=== PATIENT | female | born 1990 | race Two or more races ===

== ENCOUNTER 2016-11-29 17:20 | Emergency (ER) | payer OTHER ==
[2016-11-29 17:26] VITALS: BP 115/77; PULSE 69; TEMP 98.1; BMI 17.8
--- NOTE | 2016-11-29 19:34 | PDOC ---
History of Present Illness - General Chief Complaint: Headache Stated Complaint: HEADACHE Time Seen by Provider: 11/29/16 19:20 - History of Present Illness Initial Comments: 11/29/16 19:34 CHIEF COMPLAINT: headache x 5 days HISTORY OF PRESENT ILLNESS: 26 yo F with no significant PMH presents to ED with headache x 5 days. Patient describes the headache as localized to the right side of her head, and is accompanied by dizziness, nausea and sensitivity to light. She states that she feels better when she is in the dark. She denies fever, chills, vomiting, diarrhea, or any URI symptoms. She denies any change in vision, difficulty walking, "thunderclap" headache, or trauma. No recent travel or sick contacts. PAST MEDICAL HISTORY: Denies past medical history FAMILY HISTORY: Denies SOCIAL HISTORY: Denies tobacco, alcohol, illicit drug use. SURGICAL HISTORY: Denies ALLERGIES: No known drug allergies REVIEW OF SYSTEMS General/Constitutional: Denies fever or chills. Denies weakness, weight change. HEENT: Denies change in vision. Denies ear pain or discharge. Denies sore throat. Cardiovascular: Denies chest pain or shortness of breath. Respiratory: Denies cough, wheezing, or hemoptysis. Gastrointestinal: Denies nausea, vomiting, diarrhea or constipation. Denies rectal bleeding. Genitourinary: Denies dysuria, frequency, or change in urination. Musculoskeletal: Denies joint or muscle swelling or pain. Denies neck or back pain. Skin and breasts: Denies rash or easy bruising. Neurologic: Right sided headache x 5 days. PHYSICAL EXAM General Appearance: Well-appearing, appropriately dressed. No apparent distress , no intoxication. HEENT: EOMI, PERRLA, normal ENT inspection, normal voice, TMs normal, pharynx normal. No conjunctival pallor. No photophobia, scleral icterus. Neck: Supple. Trachea midline. No tenderness, rigidity, carotid bruit, stridor , lymphadenopathy, or thyromegaly. Respiratory/Chest: Lungs CTAB. No shortness of breath, chest tenderness, respiratory distress, accessory muscle use. No crackles, rales, rhonchi, stridor , wheezing, dullness Cardiovascular: RRR. S1, S2. No JVD, murmur, bradycardia, tachycardia. Vascular Pulses: Dorsalis-Pedis (R): 2+, Dorsalis-Pedis (L): 2+ Gastrointestinal/Abdominal: Normal bowel sounds. Abdomen soft, non-distended. No tenderness or rebound tenderness. No organomegaly, pulsatile mass, guarding , hernia, hepatomegaly, splenomegaly. Lymphatic: No adenopathy, tenderness. Musculoskeletal/Extremities: Normal inspection. FROM of all extremities, normal capillary refill. Pelvis Stable. No CVA tenderness. No tenderness to extremities, pedal edema, swelling, erythema or deformity. Integumentary: Appropriate color, dry, warm. 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 Fully oriented, alert. Appropriate mood/affect. Motor strength 5/5. No appreciable EOM palsy, facial droop or sensory deficit. A&Ox3, follow commands, respond appropriately CN2-12: conjugate gaze, pupil round, equal and reactive to light. Visual field full to confrontation. EOMI without nystagmus, pursuit is smooth without saccade. Facial sensation and muscle activation intact bilaterally. Hearing intact bilaterally. Palate elevate symmetrically. Shoulder shrug and neck turn full strength. Tongue protrude midline. Motor: UE and LE strength 5/5 throughout bilaterally. Muscle tone and bulk normal. L shoulder abd 5/5 elbow F/E 5/5 wrist F/E 5/5 finger F/E 5/5 R shoulder abd 5/5 elbow F/E 5/5 wrist F/E 5/5 finger F/E 5/5 L hip F/E 5/5 knee F/E 5/5 ankle F/E 5/5 R hip F/E 5/5 knee F/E 5/5 ankle F/E 5/5 Sensory: pin prick & temp : BUE & BLE intact and equal bilaterally Vibration & propioception: intact bilaterally at 1st MCP and MTP joints. no sensory level noted on trunk Reflex: biceps brachioradialis triceps patellar achilles L 2+ 2+ 2+ 2+ 2+ R 2+ 2+ 2+ 2+ 2+ Plantar reflex downwards bilaterally. Cerebellar: Rapid-alternating movement with regular rhythm without bradykinesia. Vaditn-pq-ihyk and bwma-ip-xujj intact bilaterally without dysmetria or overshoot. Gait narrow based. No shuffling. Full hip flexion and knee flexion. Negative Romberg No involuntary movement noted. No pronator drift. No clonus. 11/29/16 19:41 Past History - Past Medical History Allergies/Adverse Reactions: Allergies Allergy/AdvReac Type Severity Reaction Status Date / Time No Known Allergies Allergy Verified 11/29/16 17:23 Home Medications: Ambulatory Orders Aspirin/Acetaminophen/Caffeine [Excedrin Migraine Caplet] 2 tab PO Q6H PRN #16 tablet 11/29/16 Kidney Stones: Yes Suicide Attempt (Hx): No Thyroid Disease: Yes (HYPER) - Surgical History Abdominal Surgery: Yes (KIDNEY STONES) - Immunization History Immunization Up to Date: Yes - Psycho/Social/Smoking Cessation Hx Anxiety: No Suicidal Ideation: No Smoking Status: No Smoking History: Never smoked Have you smoked in the past 12 months: No Number of Cigarettes Smoked Daily: 0 Information on smoking cessation initiated: No Hx Alcohol Use: No Drug/Substance Use Hx: No Substance Use Type: None *Physical Exam - Vital Signs Last Vital Signs Temp Pulse Resp BP Pulse Ox 98.1 F 69 18 115/77 100 11/29/16 17:24 11/29/16 17:24 11/29/16 17:24 11/29/16 17:24 11/29/16 17:24 Medical Decision Making - Medical Decision Making 26 yo F with no significant PMH presents to ED with headache x 5 days. Clinical presentation consistent with migraine exacerbation. -IVF -Toradol 30 mg IV -Reglan 10 mg IV -Benadryl 25 mg IV 11/29/16 21:36 Patient reassessed, states she is feeling "way better." Patient is ready to go home. Advised patient to follow up with PCP and of signs and symptoms for return to ER. Patient verbalized understanding and agrees to plan. *DC/Admit/Observation/Transfer Diagnosis at time of Disposition: Migraine Qualifiers: Migraine type: unspecified Status migrainosus presence: without status migrainosus Intractability: not intractable Qualified Code(s): G43.909 - Migraine, unspecified, not intractable, without status migrainosus - Discharge Dispostion Disposition: HOME Condition at time of disposition: Stable Admit: No - Prescriptions Prescriptions: Aspirin/Acetaminophen/Caffeine [Excedrin Migraine Caplet] 2 tab PO Q6H PRN #16 tablet PRN Reason: Headache - Referrals Referrals: Rose Gray MD [Staff Physician] - - Patient Instructions Printed Discharge Instructions: DI for Migraine Additional Instructions: Please follow up with your primary care doctor next week for further evaluation of your migraines. If you experience any sudden "thunderclap" headache, change in vision, difficulty walking, shortness of breath, chest pain, or persistent headache despite taking medication, nausea, vomiting, diarrhea, fever, please return to the ER immediately.
[2016-11-29] MEDS ORDERED: KETOROLAC TROMETHAMINE 30 MG/1 ML VIAL IVPUSH ONE (19:40)
[2016-11-29] MEDS ORDERED: SODIUM CHLORIDE 0.9% 1000 ML INFUS.BAG IV ONE (19:40)
[2016-11-29] MEDS ORDERED: METOCLOPRAMIDE HCL INJECTION 10 MG/2 ML VIAL IVPUSH ONE (19:40)
[2016-11-29] MEDS ORDERED: METOCLOPRAMIDE HCL INJECTION 10 MG/2 ML VIAL ONE (20:13)
[2016-11-29] MEDS ORDERED: KETOROLAC TROMETHAMINE 30 MG/1 ML VIAL ONE (20:36)
== END 2016-11-29 22:12 | disposition home or self-care (01) ==
LOC: JER 17:20
PROC: 3E0333Z Introduction of Anti-inflammatory into Peripheral Vein, Percutaneous Approach (ICD-10-PCS; principal; 2016-11-29)
PROC: 3E033GC Introduction of Other Therapeutic Substance into Peripheral Vein, Percutaneous Approach (ICD-10-PCS; 2016-11-29)
DX: G43.909 Migraine, unspecified, not intractable, without status migrainosus (principal)
CPT/HCPCS: 84703; 96374; 96375; 99282-25

== ENCOUNTER 2016-12-02 17:36 | Emergency (ER) | payer OTHER ==
[2016-12-02 17:41] VITALS: BP 119/70; PULSE 71; TEMP 97.9; BMI 17.8
--- NOTE | 2016-12-02 19:52 | PDOC ---
History of Present Illness - General Chief Complaint: Headache Stated Complaint: HEADACHE Time Seen by Provider: 12/02/16 19:34 - History of Present Illness Initial Comments: 12/02/16 19:50 CHIEF COMPLAINT: headache HISTORY OF PRESENT ILLNESS: 26 yo F with hx of kidney stones, ovarian cysts, returns to ED with recurring headache.. She was seen in this ER three days ago and the headache was resolved after IV Benadryl, Toraol, Reglan, and a liter of fluids. Patient states she was going to see her primary care doctor tomorrow but the headache returned on Satuday in the same place and has been persistently 10/10, she states could not handle the pain. She also complains of nausea and one episode of watery stool today. She denies any change in vision, slurred speech, or difficulty walking. No recent travel or sick contacts. PAST MEDICAL HISTORY: as per HPI FAMILY HISTORY: father - KIKO @ age 49 SOCIAL HISTORY: Lives at home with family. Denies tobacco, alcohol, illicit drug use. SURGICAL HISTORY: 2010 ALLERGIES: No known drug allergies REVIEW OF SYSTEMS General/Constitutional: Denies fever or chills. Denies weakness, weight change. HEENT: Denies change in vision. Denies ear pain or discharge. Denies sore throat. Cardiovascular: Denies chest pain or shortness of breath. Respiratory: Denies cough, wheezing, or hemoptysis. Gastrointestinal: Denies nausea, vomiting, diarrhea or constipation. Denies rectal bleeding. Genitourinary: Denies dysuria, frequency, or change in urination. Musculoskeletal: Denies joint or muscle swelling or pain. Denies neck or back pain. Skin and breasts: Denies rash or easy bruising. Neurologic: Denies headache, vertigo, loss of consciousness, or loss of sensation. PHYSICAL EXAM General Appearance: Well-appearing, appropriately dressed. No apparent distress , no intoxication. HEENT: EOMI, PERRLA, normal ENT inspection, normal voice, TMs normal, pharynx normal. No conjunctival pallor. No photophobia, scleral icterus. Neck: Supple. Trachea midline. No tenderness, rigidity, carotid bruit, stridor , lymphadenopathy, or thyromegaly. Respiratory/Chest: Lungs CTAB. No shortness of breath, chest tenderness, respiratory distress, accessory muscle use. No crackles, rales, rhonchi, stridor , wheezing, dullness Cardiovascular: RRR. S1, S2. No JVD, murmur, bradycardia, tachycardia. Vascular Pulses: Dorsalis-Pedis (R): 2+, Dorsalis-Pedis (L): 2+ Gastrointestinal/Abdominal: Normal bowel sounds. Abdomen soft, non-distended. No tenderness or rebound tenderness. No organomegaly, pulsatile mass, guarding , hernia, hepatomegaly, splenomegaly. Lymphatic: No adenopathy, tenderness. Musculoskeletal/Extremities: Normal inspection. FROM of all extremities, normal capillary refill. Pelvis Stable. No CVA tenderness. No tenderness to extremities, pedal edema, swelling, erythema or deformity. Integumentary: Appropriate color, dry, warm. 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 Fully oriented, alert. Appropriate mood/affect. Motor strength 5/5. No appreciable EOM palsy, facial droop or sensory deficit. A&Ox3, follow commands, respond appropriately CN2-12: conjugate gaze, pupil round, equal and reactive to light. Visual field full to confrontation. EOMI without nystagmus, pursuit is smooth without saccade. Facial sensation and muscle activation intact bilaterally. Hearing intact bilaterally. Palate elevate symmetrically. Shoulder shrug and neck turn full strength. Tongue protrude midline. Motor: UE and LE strength 5/5 throughout bilaterally. Muscle tone and bulk normal. Sensory: pin prick & temp : BUE & BLE intact and equal bilaterally Vibration & propioception: intact bilaterally at 1st MCP and MTP joints. no sensory level noted on trunk Cerebellar: Rapid-alternating movement with regular rhythm without bradykinesia. Opjpyl-lb-ewkt and dxdd-dw-isev intact bilaterally without dysmetria or overshoot. Gait narrow based. No shuffling. Full hip flexion and knee flexion. Negative Romberg No involuntary movement noted. No pronator drift. No clonus. Past History - Past Medical History Allergies/Adverse Reactions: Allergies Allergy/AdvReac Type Severity Reaction Status Date / Time No Known Allergies Allergy Verified 12/02/16 17:39 Home Medications: Ambulatory Orders NK [No Known Home Medication] 12/02/16 Kidney Stones: Yes Suicide Attempt (Hx): No Thyroid Disease: Yes (HYPER) - Surgical History Abdominal Surgery: Yes (KIDNEY STONES) - Immunization History Immunization Up to Date: Yes - Psycho/Social/Smoking Cessation Hx Anxiety: No Suicidal Ideation: No Smoking Status: No Smoking History: Never smoked Have you smoked in the past 12 months: No Number of Cigarettes Smoked Daily: 0 Information on smoking cessation initiated: No Hx Alcohol Use: No Drug/Substance Use Hx: No Substance Use Type: None *Physical Exam - Vital Signs Last Vital Signs Temp Pulse Resp BP Pulse Ox 97.9 F 71 18 119/70 100 12/02/16 17:39 12/02/16 17:39 12/02/16 17:39 12/02/16 17:39 12/02/16 17:39 ED Treatment Course - LABORATORY CBC & Chemistry Diagram: 12/02/16 20:40 12/02/16 20:40 Medical Decision Making - Medical Decision Making 12/02/16 21:34 26 yo F with hx of ovarian cysts and kidney stones presents to ED with recurrent ROGERS. Likely recurring migraine, but with family history of stroke and leukemia will perform head CT and labs to rule out intracranial pathology and malignancy. -CBC, CMP -Head CT -IVF, Reglan, Toradol, Benadryl Head CT negative. Advised patient to follow up with PCP and neurologist for further evaluation of new onset recurrent migraines. Patient verbalized understanding and agrees to plan. 12/02/16 22:25 *DC/Admit/Observation/Transfer Diagnosis at time of Disposition: Migraine Qualifiers: Migraine type: unspecified Status migrainosus presence: without status migrainosus Intractability: not intractable Qualified Code(s): G43.909 - Migraine, unspecified, not intractable, without status migrainosus - Discharge Dispostion Disposition: HOME Condition at time of disposition: Stable Admit: No - Referrals Referrals: Dagmar Toribio [Primary Care Provider] - [facility] [Provider Group] - Patient Instructions Printed Discharge Instructions: DI for Migraine Additional Instructions: Please follow up with your primary care doctor and neurologist (referral provided) for further evaluation of your migraines. As discussed, please return to the ER if you develop a thunderclap headache, change in vision, difficulty walking, slurred speech, nausea, vomiting, chest pain, or any new or worsening symptoms.
[2016-12-02] MEDS ORDERED: SODIUM CHLORIDE 0.9% 1000 ML INFUS.BAG IV ONE (20:28)
[2016-12-02] MEDS ORDERED: METOCLOPRAMIDE HCL INJECTION 10 MG/2 ML VIAL IVPUSH ONE (20:28)
[2016-12-02] MEDS ORDERED: KETOROLAC TROMETHAMINE 30 MG/1 ML VIAL IVPUSH PRN (20:28)
[2016-12-02] MEDS ORDERED: METOCLOPRAMIDE HCL INJECTION 10 MG/2 ML VIAL ONE (20:33)
[2016-12-02 20:53] LABS: BASOPHIL 0.3 % (0-2.0); EOSINOPHIL 0.4 % (0-4.5); MCH 29.5 pg (25.7-33.7); MCHC 32.6 g/dl (32.0-36.0); MEAN CELL VOLUME 90.4 fl (80-96); NEUTROPHILS 65.4 % (42.8-82.8); PLATELET COUNT 238 K/MM3 (134-434); RDW 12.6 % (11.6-15.6); WHITE BLOOD COUNT 7.3 K/mm3 (4.0-10.0)
[2016-12-02 21:27] LABS: ALBUMIN 3.7 g/dl (3.4-5.0); ANION GAP 8 (8-16); CO2 26 mmol/L (21-32); CREATININE 0.8 mg/dL (0.55-1.02); GLUCOSE,RANDOM 97 mg/dL (74-106); SGOT/AST 15 U/L (15-37); SGPT/ALT 10 U/L (12-78)
[2016-12-02 21:29] LABS: ALK PHOS 50 U/L (45-117); BILIRUBIN,TOTAL 0.4 mg/dL (0.2-1.0); TOT PROT 7.4 g/dl (6.4-8.2)
== END 2016-12-02 22:41 | disposition home or self-care (01) ==
LOC: JER 17:36
PROC: 3E033GC Introduction of Other Therapeutic Substance into Peripheral Vein, Percutaneous Approach (ICD-10-PCS; principal; 2016-12-02)
DX: G43.909 Migraine, unspecified, not intractable, without status migrainosus (principal)
CPT/HCPCS: 36415; 70450-TC; 80053; 84703; 85025; 96374; 96375; 99282-25

== ENCOUNTER 2017-06-13 14:32 | Emergency (ER) | payer OTHER ==
[2017-06-13 14:44] VITALS: TEMP 98.1; BMI 18.0
[2017-06-13 17:22] LABS: BASOPHIL 0.6 % (0-2.0); EOSINOPHIL 0.3 % (0-4.5); MCH 29.8 pg (25.7-33.7); MCHC 33.2 g/dl (32.0-36.0); MEAN CELL VOLUME 89.7 fl (80-96); MEAN PLT VOLUME 8.1 fl (7.5-11.1); PLATELET COUNT 213 K/MM3 (134-434); RDW 12.4 % (11.6-15.6); WHITE BLOOD COUNT 7.3 K/mm3 (4.0-10.0)
[2017-06-13 17:24] LABS: URINE APPEARANCE CLEAR; URINE BILIRUBIN NEGATIVE (NEGATIVE); URINE BLOOD 2+ (NEGATIVE); URINE COLOR LTYELLOW; URINE GLUCOSE (UA) NEGATIVE (NEGATIVE); URINE KETONE NEGATIVE (NEGATIVE); URINE LEUK ESTERASE NEGATIVE (NEGATIVE); URINE NITRITE NEGATIVE (NEGATIVE); URINE PROTEIN NEGATIVE (NEGATIVE); URINE UROBILINOGEN NEGATIVE mg/dL (0.2-1.0)
[2017-06-13 17:30] LABS: URINE BACTERIA RARE /hpf (NONE SEEN); URINE MUCUS RARE; URINE RBC 31 /hpf (0-3); URINE WBC 2 /hpf (3-5)
--- NOTE | 2017-06-13 17:57 | PDOC ---
History of Present Illness - General Chief Complaint: Vaginal Bleeding Stated Complaint: Vaginal Bleeding Time Seen by Provider: 06/13/17 15:32 History Source: Patient Exam Limitations: No Limitations - History of Present Illness Travel History: No Initial Comments: 06/13/17 17:53 26-year-old female presents to the emergency room for evaluation of abnormal vaginal bleeding without abdominal pain since yesterday. Patient states her menses was approximately 2 weeks ago and states has not had irregular menses, dysuria, fever, chills, weakness, dyspnea on exertion, or vaginal discharge prior to leaving. Patient states started Penicillin VK for dental abscess a few days ago and thought that the vaginal bleeding was related to the antibiotics. Timing/Duration: reports: constant Aggravating Factors: improves with: None Alleviating Factors: improves with: None Past History - Travel Traveled outside of the country in the last 30 days: No Close contact w/someone who was outside of country & ill: No - Past Medical History Allergies/Adverse Reactions: Allergies Allergy/AdvReac Type Severity Reaction Status Date / Time No Known Allergies Allergy Verified 06/13/17 14:40 Home Medications: Ambulatory Orders NK [No Known Home Medication] 12/02/16 Kidney Stones: Yes (X1) Suicide Attempt (Hx): No Thyroid Disease: Yes (HYPER) - Surgical History Abdominal Surgery: Yes (KIDNEY STONES) - Immunization History Immunization Up to Date: Yes - Psycho/Social/Smoking Cessation Hx Anxiety: No Suicidal Ideation: No Smoking Status: No Smoking History: Never smoked Have you smoked in the past 12 months: No Number of Cigarettes Smoked Daily: 0 Hx Alcohol Use: No Drug/Substance Use Hx: No Substance Use Type: None Patient Lives Alone: No Review of Systems - Review of Systems Able to Perform ROS?: Yes Constitutional: No: Symptoms Reported Respiratory: No: Symptoms reported Cardiac (ROS): No: Symptoms Reported ABD/GI: No: Symptoms Reported : Yes: Discharge Musculoskeletal: No: Back Pain Integumentary: No: Pallor Neurological: No: Headache, Weakness, Dizziness *Physical Exam - Vital Signs Last Vital Signs Temp Pulse Resp BP Pulse Ox 98.1 F 67 19 115/62 99 06/13/17 14:40 06/13/17 14:40 06/13/17 14:40 06/13/17 14:40 06/13/17 14:40 - Physical Exam General Appearance: Yes: Nourished, Appropriately Dressed. No: Apparent Distress HEENT: negative: Pale Conjunctivae Respiratory/Chest: positive: Lungs Clear, Normal Breath Sounds. negative: Respiratory Distress, Accessory Muscle Use Cardiovascular: positive: Regular Rhythm, Regular Rate. negative: Murmur Female Pelvic Exam: positive: cervical os closed, vaginal bleeding (dark red no clots). negative: CMT, adnexal tenderness Gastrointestinal/Abdominal: positive: Normal Bowel Sounds, Soft. negative: Tenderness Extremity: positive: Normal Capillary Refill Integumentary: positive: Normal Color, Warm, Moist Neurologic: positive: Motor Strength 5/5 (ambulatory) ED Treatment Course - LABORATORY CBC & Chemistry Diagram: 06/13/17 16:25 - ADDITIONAL ORDERS Additional order review: Laboratory Results 06/13/17 16:25 Urine Color Ltyellow Urine Appearance Clear Urine pH 6.0 Urine Protein Negative Urine Glucose (UA) Negative Urine Ketones Negative Urine Blood 2+ H Urine Nitrite Negative Urine Bilirubin Negative Urine Urobilinogen Negative Ur Leukocyte Esterase Negative Urine RBC 31 Urine WBC 2 Ur Epithelial Cells Rare Urine Bacteria Rare Urine Mucus Rare Urine HCG, Qual Negative 06/13/17 16:25 RBC 3.95 MCV 89.7 MCHC 33.2 RDW 12.4 MPV 8.1 Neutrophils % 58.0 Lymphocytes % 35.7 D Monocytes % 5.4 Eosinophils % 0.3 Basophils % 0.6 - RADIOLOGY Radiology Studies Ordered: Category Date Time Status TRANSVAGINAL ULTRASOUND US [US] Stat Ultrasound 06/13/17 17:45 Ordered Medical Decision Making - Medical Decision Making 06/13/17 16:57 Patient with abnormal vaginal bleeding and on exam had dark red blood in the vault without abdominal tenderness or adnexal tenderness. Patient ordered for urinalysis urine the CBC to check for anemia and depending on results will order ultrasound. 06/13/17 17:58 Laboratory Tests 06/13/17 06/13/17 16:25 16:25 WBC 7.3 Hgb 11.8 Hct 35.5 Plt Count 213 Neutrophils % 58.0 Urine Blood 2+ H Ur Leukocyte Esterase Negative Urine WBC 2 Urine HCG, Qual Negative 06/13/17 18:56 Ultrasound shows no acute sonographic findings. Small amount of free fluid is noted without focal uterine pathology noted. Endometrial thickness is measuring 0.6 cm. The ovaries demonstrate no discrete abnormality. 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
[2017-06-13 19:16] VITALS: BP 110/74; PULSE 74
== END 2017-06-13 19:16 | disposition home or self-care (01) ==
LOC: JER 14:32
DX: N93.8 Other specified abnormal uterine and vaginal bleeding (principal); E05.90 Thyrotoxicosis, unspecified without thyrotoxic crisis or storm; Z87.442 Personal history of urinary calculi
CPT/HCPCS: 36415; 76830-TC; 81003; 81015; 84703; 85025; 99282-25

== ENCOUNTER 2018-02-19 18:38 | Emergency (ER) | payer OTHER ==
--- NOTE | 2018-02-19 19:11 | PDOC ---
Rapid Medical Evaluation Time Seen by Provider: 02/19/18 19:04 Medical Evaluation: Allergies Allergy/AdvReac Type Severity Reaction Status Date / Time No Known Allergies Allergy Verified 06/13/17 14:40 02/19/18 19:07 I have performed a brief in-person evaluation of this patient. The patient presents with a chief complaint of: b/l flank pain x 2 weeks ago, saw doctor friday and had urine test but has not received results yet, hx of kidney stones, LMP 02/04, had breast implants 01/22, denies f/c/n/v/d Pertinent physical exam findings: + b/l CVA tenderness I have ordered the following: ua, ucx, upreg The patient will proceed to the ED for further evaluation. Discharge Disposition - Diagnosis Flank pain - Referrals - Patient Instructions - Post Discharge Activity
[2018-02-19 19:12] VITALS: BP 115/65; PULSE 74; TEMP 98.3; BMI 18.0
[2018-02-19] MEDS ORDERED: ACETAMINOPHEN 325 MG TABLET (FP) PO ONE (19:49)
[2018-02-19 19:54] LABS: URINE APPEARANCE CLEAR; URINE BILIRUBIN NEGATIVE (<2.0 mg/dL); URINE BLOOD NEGATIVE (NEGATIVE); URINE COLOR LTYELLOW; URINE GLUCOSE (UA) NEGATIVE (NEGATIVE); URINE KETONE NEGATIVE (NEGATIVE); URINE LEUK ESTERASE NEGATIVE (NEGATIVE); URINE NITRITE NEGATIVE (NEGATIVE); URINE PROTEIN NEGATIVE (NEGATIVE); URINE UROBILINOGEN NEGATIVE mg/dL (0.2-1.0)
--- NOTE | 2018-02-19 19:54 | PDOC ---
History of Present Illness - General Chief Complaint: Pain Stated Complaint: PAIN Time Seen by Provider: 02/19/18 19:04 History Source: Patient Exam Limitations: No Limitations - History of Present Illness Travel History: No Initial Comments: 02/19/18 19:52 27-year-old woman without significant past medical history who presents to the emergency department with bilateral flank pain, dysuria, vaginal discharge for 2 weeks. Patient states she was evaluated by her primary doctor who ran urine testing and patient is unaware of the results at this time. Patient states she had unprotected vaginal intercourse with one male partner approximately 2 months ago. She denies any intercourse in the past 6 weeks. She denies fevers, chills, nausea, vomiting, hematuria, vaginal bleeding, diarrhea, constipation. Patient also with intermittent headaches over this time. Currently 02/24 Past History - Past Medical History Allergies/Adverse Reactions: Allergies Allergy/AdvReac Type Severity Reaction Status Date / Time No Known Allergies Allergy Verified 02/19/18 19:12 Home Medications: Ambulatory Orders NK [No Known Home Medication] 12/02/16 COPD: No Kidney Stones: Yes (X1) Thyroid Disease: Yes (HYPER) - Surgical History Abdominal Surgery: Yes (KIDNEY STONES) - Immunization History Immunization Up to Date: Yes - Suicide/Smoking/Psychosocial Hx Smoking Status: No Smoking History: Never smoked Have you smoked in the past 12 months: No Number of Cigarettes Smoked Daily: 0 Hx Alcohol Use: No Drug/Substance Use Hx: No Substance Use Type: None Review of Systems - Review of Systems Able to Perform ROS?: Yes Is the patient limited Maltese proficient: No Constitutional: No: Symptoms Reported HEENTM: No: Symptoms Reported Respiratory: No: Symptoms reported Cardiac (ROS): No: Symptoms Reported ABD/GI: No: Symptoms Reported : Yes: See HPI Musculoskeletal: No: Symptoms Reported Integumentary: No: Symptoms Reported Neurological: Yes: See HPI *Physical Exam - Vital Signs Last Vital Signs Temp Pulse Resp BP Pulse Ox 98.3 F 74 18 115/65 99 02/19/18 19:08 02/19/18 19:08 02/19/18 19:08 02/19/18 19:08 02/19/18 19:08 - Physical Exam General Appearance: Yes: Appropriately Dressed. No: Apparent Distress HEENT: positive: Normal ENT Inspection Neck: positive: Trachea midline, Supple Respiratory/Chest: positive: Lungs Clear, Normal Breath Sounds. negative: Respiratory Distress, Accessory Muscle Use Cardiovascular: positive: Regular Rhythm, Regular Rate. negative: Murmur Female Pelvic Exam: positive: normal external exam, normal adnexa, discharge. negative: CMT, lesions, Bartholin mass, adnexal tenderness, vaginal bleeding Gastrointestinal/Abdominal: positive: Normal Bowel Sounds, Soft. negative: Tender Musculoskeletal: positive: Normal Inspection, CVA Tenderness Extremity: positive: Normal Inspection, Normal Range of Motion Integumentary: positive: Normal Color, Dry, Warm Neurologic: positive: Alert, Normal Response, Motor Strength 5/5 Medical Decision Making - Medical Decision Making 02/19/18 19:53 A/P: 27-year-old female without significant past medical history with flank lower abdominal pain dysuria and vaginal discharge for 2 weeks. Thick white malodorous discharge present in the vaginal vault. No cervical motion tenderness. No adnexal tenderness present. Urine testing, UA, urine culture, urine gonorrhea and chlamydia, Tylenol 02/19/18 20:41 UA negative. We'll treat the patient for GC with ceftriaxone 250 mg IM and azithromycin 1 g orally *DC/Admit/Observation/Transfer Diagnosis at time of Disposition: Cervicitis, acute, non-specific - Discharge Dispostion Disposition: HOME Condition at time of disposition: Stable Admit: No - Referrals - Patient Instructions Printed Discharge Instructions: DI for Chlamydia Additional Instructions: You been treated today with azithromycin 1 g by mouth for treatment of presumed chlamydia You have been treated with Rocephin 250 mg injection for treatment of presumed gonorrhea The gonorrhea and chlamydia testing will not be completed for the next few days. You may call and leave message for return phone call with lab results. Be sure to be clear with your name, birthdate, and phone number Always use condoms with the partners Followup with CHEF INSTRUCTOR or PMD in one week for reevaluation and retesting. - Post Discharge Activity
[2018-02-19] MEDS ORDERED: ACETAMINOPHEN 325 MG TABLET (FP) ONE (19:57)
[2018-02-19] MEDS ORDERED: AZITHROMYCIN 1 GM PACKET PO ONE (20:42)
[2018-02-19] MEDS ORDERED: AZITHROMYCIN 500 MG TABLET ONE (20:49)
== END 2018-02-19 21:01 | disposition home or self-care (01) ==
LOC: JERFT 18:38
DX: N72 Inflammatory disease of cervix uteri (principal); E05.90 Thyrotoxicosis, unspecified without thyrotoxic crisis or storm; Z87.442 Personal history of urinary calculi
CPT/HCPCS: 36415; 81003; 84703; 87086; 87491; 87591; 99281-25

== ENCOUNTER 2019-05-24 17:14 | Emergency (ER) | payer OTHER ==
[2019-05-24 17:23] VITALS: BP 120/71; PULSE 120; TEMP 101.6; BMI 18.9
--- NOTE | 2019-05-24 17:23 | PDOC ---
Rapid Medical Evaluation Time Seen by Provider: 05/24/19 17:20 Medical Evaluation: Allergies Allergy/AdvReac Type Severity Reaction Status Date / Time No Known Allergies Allergy Verified 06/30/18 12:39 05/24/19 17:21 This patient had a brief in-person evaluation by me. cc: pain to left side , with fever and chills also reports urinary frequency, and discomfort with urination PE: NAD even and unlabored breathing non e tender abdomen Orders: urine preg, u/a This patient will proceed to Ed for further evaluation 05/24/19 17:22 Discharge Disposition - Diagnosis Abdominal pain - Referrals - Patient Instructions - Post Discharge Activity
[2019-05-24] MEDS ORDERED: IBUPROFEN 400 MG TABLET (FP) PO ONE ×2 (17:24→17:26)
[2019-05-24] MEDS ORDERED: SODIUM CHLORIDE 1,000 ML IV STA (19:34)
--- NOTE | 2019-05-24 19:36 | PDOC ---
History of Present Illness - General Chief Complaint: Urinary Problem Stated Complaint: FEVER/PAIN Time Seen by Provider: 05/24/19 17:20 History Source: Patient - History of Present Illness Initial Comments: 05/24/19 19:39 28 year old c/o fever yesterday c/o dysuria and left flank pain. + nausea. Tmax 102. denies vomiting, diarrhea, + new partner. reports using protection, denies exposure to STI, denies vaginal discharge, pelvic pain/ PMHX: none pcp: [address] [place] [address] Past History - Past Medical History Allergies/Adverse Reactions: Allergies Allergy/AdvReac Type Severity Reaction Status Date / Time No Known Allergies Allergy Verified 05/24/19 17:23 Home Medications: Ambulatory Orders Acetaminophen [Tylenol Extra Strength] 1,000 mg PO ASDIR 06/30/18 Doxycycline Hyclate 100 mg PO BID #20 tablet 06/30/18 Ibuprofen 600 mg PO TID 5 Days #15 tablet 06/30/18 Ondansetron HCl [Zofran] 4 mg PO DAILY 5 Days #5 tablet 06/30/18 Cefuroxime Axetil [Ceftin -] 500 mg PO Q12H #20 tablet 05/24/19 COPD: No Kidney Stones: Yes (X1) Thyroid Disease: Yes (HYPER) - Surgical History Abdominal Surgery: Yes (KIDNEY STONES) - Immunization History Immunization Up to Date: Yes - Suicide/Smoking/Psychosocial Hx Smoking Status: No Smoking History: Never smoked Have you smoked in the past 12 months: No Number of Cigarettes Smoked Daily: 0 Information on smoking cessation initiated: No Hx Alcohol Use: No Drug/Substance Use Hx: No Substance Use Type: None Review of Systems - Review of Systems Able to Perform ROS?: Yes Is the patient limited Z[place]ian proficient: No Constitutional: Yes: Fever ABD/GI: Yes: Nausea. No: Symptoms Reported, See HPI, Abdominal Distended, Abd. Pain w/ defecation, Blood Streaked Bowels, Constipated, Diarrhea, Difficulty Swallowing, Poor Appetite, Poor Fluid Intake, Rectal Bleeding, Vomiting, Indigestion, Abdominal cramping, Tarry Stools, Other : Yes: Dysuria, Flank Pain. No: Symptoms Reported, See HPI, Burning, Discharge, Frequency, Hematuria, Incontinence, Pain, Urgency, Testicular Mass, Testicular Swelling, Lesions, Testicular Pain, Other *Physical Exam - Vital Signs Last Vital Signs Temp Pulse Resp BP Pulse Ox 101.6 F H 120 H 18 120/71 100 05/24/19 17:21 05/24/19 17:21 05/24/19 17:21 05/24/19 17:21 05/24/19 17:21 - Physical Exam General Appearance: Yes: Appropriately Dressed Respiratory/Chest: positive: Lungs Clear Cardiovascular: positive: Tachycardia Gastrointestinal/Abdominal: positive: Normal Bowel Sounds, Soft. negative: Tender Musculoskeletal: positive: Normal Inspection, CVA Tenderness (L) Extremity: positive: Normal Capillary Refill, Normal Inspection, Normal Range of Motion Integumentary: positive: Normal Color, Dry, Warm Neurologic: positive: Fully Oriented, Alert ED Treatment Course - LABORATORY CBC & Chemistry Diagram: 05/24/19 20:02 05/24/19 20:02 - Medications Given in the ED: ED Medications Discontinued Medications Generic Name Dose Route Start Last Admin Trade Name Freq PRN Reason Stop Dose Admin Ibuprofen 400 mg 05/24/19 17:24 05/24/19 17:27 Motrin - PO 05/24/19 17:25 400 mg ONCE ONE Administration Progress Note - Progress Note Progress Note: A: pyelonephritis. P; CBC CMP\ UA: nitrite positive large leuks. will treat Ceftriaxone UCX GC : pending *DC/Admit/Observation/Transfer Diagnosis at time of Disposition: Pyelonephritis - Discharge Dispostion Disposition: HOME - Prescriptions Prescriptions: Cefuroxime Axetil [Ceftin -] 500 mg PO Q12H #20 tablet - Referrals Referrals: Marysol Penaloza [Primary Care Provider] - 2 Days - Patient Instructions Printed Discharge Instructions: Kidney Infection Additional Instructions: Drink plenty of fluids Take ibuprofen every 6 hours as needed for pain take tylenol every 4 -6 hours as needed for fever Take cefuroxime as prescribed Follow-up with your primary care doctor as soon as possible. You need to repeat urine test once your antibiotic is completed. We will call you if you're antibiotic needs to be changed. - Post Discharge Activity Forms/Work/School Notes: Back to Work
--- NOTE | 2019-05-24 19:41 | PDOC ---
*Physical Exam - Vital Signs Last Vital Signs Temp Pulse Resp BP Pulse Ox 101.6 F H 120 H 18 120/71 100 05/24/19 17:21 05/24/19 17:21 05/24/19 17:21 05/24/19 17:21 05/24/19 17:21 ED Treatment Course - LABORATORY CBC & Chemistry Diagram: 05/24/19 20:02 05/24/19 20:02 - Medications Given in the ED: ED Medications Discontinued Medications Generic Name Dose Route Start Last Admin Trade Name Brooke PRN Reason Stop Dose Admin Ibuprofen 400 mg 05/24/19 17:24 05/24/19 17:27 Motrin - PO 05/24/19 17:25 400 mg ONCE ONE Administration Medical Decision Making - Medical Decision Making 05/24/19 19:41 Patient seen by the advanced practice provider under my direct supervision. Ancillary testing reviewed as necessary. I agree with plan as outlined by the advanced practice provider. *DC/Admit/Observation/Transfer Diagnosis at time of Disposition: Pyelonephritis - Discharge Dispostion Disposition: HOME - Prescriptions Prescriptions: Cefuroxime Axetil [Ceftin -] 500 mg PO Q12H #20 tablet - Referrals Referrals: Marysol Penaloza [Primary Care Provider] - 2 Days - Patient Instructions Printed Discharge Instructions: Kidney Infection Additional Instructions: Drink plenty of fluids Take ibuprofen every 6 hours as needed for pain take tylenol every 4 -6 hours as needed for fever Take cefuroxime as prescribed Follow-up with your primary care doctor as soon as possible. You need to repeat urine test once your antibiotic is completed. We will call you if you're antibiotic needs to be changed. - Post Discharge Activity Forms/Work/School Notes: Back to Work
[2019-05-24] MEDS ORDERED: ONDANSETRON 4 MG/2 ML VIAL IVPUSH ONE (20:25)
[2019-05-24] MEDS ORDERED: ONDANSETRON 4 MG/2 ML VIAL ONE (20:31)
[2019-05-24 21:05] LABS: HEMATOCRIT 36.5 % (32.4-45.2); HEMOGLOBIN 12.3 GM/dL (10.7-15.3); MCH 30.9 pg (25.7-33.7); MCHC 33.6 g/dl (32.0-36.0); PLATELET COUNT 222 K/MM3 (134-434); RBC 3.97 M/mm3 (3.60-5.2); RDW 12.4 % (11.6-15.6); WHITE BLOOD COUNT 11.9 K/mm3 (4.0-10.0)
[2019-05-24 21:06] LABS: BASO % 0.3 % (0-2.0); LYMPH % 12.3 % (8-40); MEAN PLT VOLUME 8.3 fl (7.5-11.1); MONO % 7.7 % (3.8-10.2); NEUT % 79.7 % (42.8-82.8)
[2019-05-24 21:17] LABS: BILIRUBIN,TOTAL 0.4 mg/dL (0.2-1); BLOOD UREA NITROGEN 8.4 mg/dL (7-18); CALCIUM 8.5 mg/dL (8.5-10.1); CREATININE 0.9 mg/dL (0.55-1.3); POTASSIUM 3.4 mmol/L (3.5-5.1); TOT PROT 7.9 g/dl (6.4-8.2)
[2019-05-24 21:23] LABS: HCG,QUALITATIVE URINE Negative
[2019-05-24 22:07] LABS: HYALINE CASTS 32 /lpf (0-8); PH,URINE 5.5 (5.0-8.0); URINE APPEARANCE CLEAR; URINE BACTERIA >9000 /hpf (NEGATIVE); URINE BILIRUBIN NEGATIVE (NEGATIVE); URINE COLOR YELLOW; URINE GLUCOSE (UA) NEGATIVE (NEGATIVE); URINE KETONE 1+ (NEGATIVE); URINE LEUK ESTERASE 2+ (NEGATIVE); URINE NITRITE POSITIVE (NEGATIVE); URINE PROTEIN TRACE (NEGATIVE); URINE RBC 1 /hpf (0-4); URINE WBC 33 /hpf (0-5)
[2019-05-24] MEDS ORDERED: CEFTRIAXONE 1 GM/50 ML BAG ONE (22:32)
== END 2019-05-24 23:25 | disposition home or self-care (01) ==
LOC: JER 17:14
PROC: 3E0337Z Introduction of Electrolytic and Water Balance Substance into Peripheral Vein, Percutaneous Approach (ICD-10-PCS; principal; 2019-05-24)
PROC: 3E03329 Introduction of Other Anti-infective into Peripheral Vein, Percutaneous Approach (ICD-10-PCS; 2019-05-24)
PROC: 3E033GC Introduction of Other Therapeutic Substance into Peripheral Vein, Percutaneous Approach (ICD-10-PCS; 2019-05-24)
DX: N12 Tubulo-interstitial nephritis, not specified as acute or chronic (principal)
CPT/HCPCS: 36415; 80053; 81003; 84703; 85025; 87077; 87086; 87186; 87491; 87591; 96361; 96374; 96375; 99281-25; J7030

== ENCOUNTER 2021-08-20 18:20 | Emergency (ER) | payer OTHER ==
[2021-08-20 18:27] VITALS: BP 112/75; PULSE 85; TEMP 98.6; BMI 19.5
== END 2021-08-20 21:40 | disposition home or self-care (01) ==
LOC: JERFT 18:20 → JER 18:20 → JERFT 21:40
PROC: 0HBGXZZ Excision of Left Hand Skin, External Approach (ICD-10-PCS; principal; 2021-08-20)
DX: S60.941A Unspecified superficial injury of left index finger, initial encounter (principal); W23.1XXA Caught, crushed, jammed, or pinched between stationary objects, initial encounter
CPT/HCPCS: 99282-25

== ENCOUNTER 2024-05-14 10:06 | Emergency (ER) | payer OTHER ==
[2024-05-14 10:15] VITALS: BP 102/64; PULSE 86; RESP 18; TEMP 97.7; BMI 21.7
[2024-05-14] MEDS ORDERED: ACETAMINOPHEN 500 MG TABLET (FP) ONE (10:41)
[2024-05-14] MEDS: ACETAMINOPHEN 500 MG TABLET (FP) PO ONE (10:46)
[2024-05-14 12:36] LABS: PH,URINE 7.5 (5.0-8.0); URINE APPEARANCE CLEAR; URINE BILIRUBIN NEGATIVE (NEGATIVE); URINE COLOR YELLOW; URINE GLUCOSE (UA) NEGATIVE (NEGATIVE); URINE KETONE 1+ (NEGATIVE); URINE LEUK ESTERASE NEGATIVE (NEGATIVE); URINE NITRITE NEGATIVE (NEGATIVE); URINE PROTEIN NEGATIVE (NEGATIVE); URINE UROBILINOGEN 0.2 mg/dL (0.2-1.0)
== END 2024-05-14 13:18 | disposition home or self-care (01) ==
LOC: JER 10:06
DX: O26.892 Other specified pregnancy related conditions, second trimester (principal); R10.2 Pelvic and perineal pain; R10.32 Left lower quadrant pain; Z3A.15 15 weeks gestation of pregnancy
CPT/HCPCS: 76815; 81003; 87086; 99284-25

== ENCOUNTER 2024-10-07 17:35 | Inpatient (IN) | payer OTHER ==
[2024-10-07] MEDS: ELECTROLYTE-148 SOLN 500 ML IV ONE (19:15)
[2024-10-07] MEDS: ELECTROLYTE-148 SOLN 1,000 ML IV SCH (21:30)
[2024-10-07 22:39] LABS: BASO % 0.2 % (0-2.0); EOS % 0.2 % (0-4.5); HEMATOCRIT 33.7 % (32.4-45.2); HEMOGLOBIN 11.3 GM/dL (10.7-15.3); LYMPH % 26.5 % (8-40); MCH 31.5 pg (25.7-33.7); MCHC 33.6 g/dl (32.0-36.0); MEAN CELL VOLUME 93.9 fl (80-96); MEAN PLT VOLUME 6.7 fl (7.5-11.1); NEUT % 69.1 % (42.8-82.8); PLATELET COUNT 219 10^3/uL (134-434); RBC 3.59 M/mm3 (3.60-5.2); RDW 12.7 % (11.6-15.6); WHITE BLOOD COUNT 7.3 K/mm3 (4.0-10.0)
[2024-10-07 22:51] VITALS: BMI 24.3
[2024-10-07 22:52] LABS: INR 0.93 (0.83-1.09); PROTHROMBIN TIME (PATIENT) 10.5 SEC (9.7-13.0)
[2024-10-07 22:55] LABS: ACTIVATED PTT 26.9 SECONDS (25.2-36.5)
[2024-10-07 22:58] LABS: POTASSIUM 3.4 mmol/L (3.5-5.1)
[2024-10-07 23:00] LABS: CALCIUM 8.3 mg/dL (8.5-10.1)
[2024-10-07 23:04] LABS: CREATININE 0.5 mg/dL (0.55-1.3)
[2024-10-08] MEDS: ELECTROLYTE-148 SOLN 500 ML IV ONE (08:57)
[2024-10-08] MEDS: morphine SULFATE 4 MG/ML VIAL IVPUSH ONE (08:58)
[2024-10-08] MEDS: CITRIC ACID/SODIUM CITRATE 30 ML UNIT-DOSE CUP PO ONE (10:10)
[2024-10-08] MEDS: ELECTROLYTE-148 SOLN 1,000 ML IV SCH (10:30)
[2024-10-08] MEDS ORDERED: FENTANYL CITRATE/PF 50 MCG/ML VIAL ONE (10:53)
[2024-10-08] MEDS ORDERED: morphine SULFATE (PF) 1 MG/2 ML SYRINGE ONE (10:53)
[2024-10-08] MEDS ORDERED: ceFAZolin SODIUM 1 GM VIAL ONE (11:14)
[2024-10-08 12:02] LABS: CORD HCO3 20.3 mmHg (20-29); CORD PCO2 59.1 mmHg (30-78); CORD pH 7.154 (7.14-7.44)
[2024-10-08 12:03] LABS: CORD HCO3 20.1 mmHg (20-29); CORD PCO2 48.6 mmHg (30-78); CORD pH 7.235 (7.14-7.44)
[2024-10-08] MEDS ORDERED: ONDANSETRON 4 MG/2 ML VIAL IVPB PRN (12:11)
[2024-10-08] MEDS ORDERED: WITCH HAZEL 50% (TUCKS) 40 PAD/JAR PAD TP PRN (12:11)
[2024-10-08] MEDS ORDERED: OXYTOCIN 20 UNITS in 0.9% NS 20 UNIT/1,000 ML INFUS.BAG IV ONE (12:35)
[2024-10-08] MEDS: OXYTOCIN 20 UNITS in 0.9% NS 20 UNIT/1,000 ML INFUS.BAG IV SCH (12:50)
[2024-10-08] MEDS ORDERED: ACETAMINOPHEN INJECTION 100 ML ONE (14:30)
[2024-10-08] MEDS: ACETAMINOPHEN 1000 MG/100 ML BAG IVPB PRN (14:34)
[2024-10-08] MEDS: IBUPROFEN 800 MG/8 ML IJ IVPB PRN (17:26)
[2024-10-08] MEDS: SENNOSIDES/DOCUSATE COMBO (SENNA PLUS) TABLET (UD) PO SCH (22:00)
[2024-10-08 22:55] VITALS: RESP 18
[2024-10-09 08:40] LABS: BASO % 0.1 % (0-2.0); EOS % 0.2 % (0-4.5); HEMATOCRIT 28.9 % (32.4-45.2); HEMOGLOBIN 9.8 GM/dL (10.7-15.3); LYMPH % 13.2 % (8-40); MCH 31.6 pg (25.7-33.7); MCHC 33.8 g/dl (32.0-36.0); MEAN CELL VOLUME 93.4 fl (80-96); MONO % 3.7 % (3.8-10.2); NEUT % 82.8 % (42.8-82.8); PLATELET COUNT 194 10^3/uL (134-434); RBC 3.09 M/mm3 (3.60-5.2); RDW 12.7 % (11.6-15.6); WHITE BLOOD COUNT 9.8 K/mm3 (4.0-10.0)
[2024-10-09] MEDS: PRENATAL VITAMINS W/ FOLIC ACID TABLET (FP) PO SCH (09:38)
[2024-10-09] MEDS: oxyCODONE HCL 5 MG TABLET PO PRN (09:52)
[2024-10-09] MEDS ORDERED: BISACODYL 10 MG SUPP.RECT RC PRN (12:11)
[2024-10-09] MEDS: ACETAMINOPHEN 325 MG TABLET (FP) PO PRN (13:07)
[2024-10-09] MEDS: SIMETHICONE 80 MG TAB.CHEW (FP) PO PRN (15:23)
[2024-10-09] MEDS: IBUPROFEN 600 MG TABLET (FP) PO PRN (16:35)
[2024-10-11 09:13] VITALS: BP 106/64; PULSE 93; TEMP 98.1
== END 2024-10-11 18:08 | disposition home or self-care (01) | DRG 540 ==
LOC: JDEL 17:35 → JLDR 21:20 → OBSVTOIN 10-08 07:39 → J3W 10-08 14:40
PROVIDERS: ADMIT Family Medicine; ATTEND Family Medicine
PROC: 10D00Z1 Extraction of Products of Conception, Low, Open Approach (ICD-10-PCS; principal; 2024-10-08)
DX: O34.211 Maternal care for low transverse scar from previous cesarean delivery (principal); N85.8 Other specified noninflammatory disorders of uterus; Z3A.38 38 weeks gestation of pregnancy; Z37.0 Single live birth
CPT/HCPCS: 36415; 36600; 59409; 80048; 82803; 85025; 85610; 85730; 86780; 86850; 86900; 86901; 88307-TC; G0378; J0131